=== PATIENT | female | born 1985 | race Caucasian/White ===

== ENCOUNTER 2023-08-07 12:07 | Emergency (ER) | payer OTHER, SELFPAY ==
--- NOTE | 2023-08-07 12:13 | ED.URI ---
HPI - URI/Sore Throat General Chief Complaint: Upper Respiratory Infection Stated Complaint: Cough/Congestion Source: patient, RN notes reviewed and old records reviewed Mode of arrival: ambulatory Limitations: no limitations History of Present Illness HPI Narrative: 37-year-old female presents with complaints of cough, congestion, sinus pressure this started before [place]. Patient taking ynmc-cin-zaplqao medications with no relief. Patient states has thick yellow/ green phlegm production. Patient denies weakness, dizziness, chest pain, shortness of breath. MD elicited complaint: cough, rhinorrhea, nasal congestion and sinus pain Onset (ago): day(s) () Related Data Allergies Allergy/AdvReac Type Severity Reaction Status Date / Time Penicillins Allergy Intermediate Unknown Verified 07/03/18 09:33 Review of Systems Constitutional: Constitutional: Reports no additional constitutional complaints, Denies body ache(s), Denies chills, Denies fatigue, Denies fever(s) and Reports headache(s) Eyes: Eyes: Reports no additional eye complaints and Denies blurry vision ENT: Reports system reviewed and no additional complaints, except as documented, Denies vertigo, Denies dizziness, Denies ear discharge, Denies otalgia, Denies facial pain, Denies headache(s), Reports nasal congestion, Reports nasal discharge, Reports sinus pain, Reports sinus pressure and Denies sore throat Cardiovascular: Cardiovascular: Reports no additional cardiovascular complaints, Denies chest pain, Denies chest pain at rest, Denies rapid heart rate and Denies dyspnea Respiratory: Respiratory: Reports no additional respiratory complaints, Reports chest congestion, Reports cough, Denies pain on inspiration, Denies pain with cough and Denies dyspnea Gastrointestinal: Gastrointestinal: Denies abdominal pain, Denies diarrhea, Denies nausea and Denies vomiting Integumentary/Breasts: Skin/Breast: Denies rash Neurologic: Reports system reviewed and no additional complaints, except as documented, Denies vertigo, Denies dizziness and Denies headache(s) Endocrine: Endocrine: Denies fatigue PMFSH Comments At the time of my signature, I reviewed and agree with the nursing past medical, surgical, social, and family history. There is no relevant family history pertinent to the patient complaint. Exam Const: General: cooperative, healthy appearing, no acute distress and well nourished Nutritional Appearance: well nourished Orientation/consciousness: patient oriented x3 Limitations: no limitations HENMT: Head: normal to inspection and normocephalic Ears: external ears normal, mastoids normal, Abnormal EAC present and TM abnormal wth effusion Face/Nose/Sinus: Nasal discharge present purulent Face and sinus: normal facial exam and sinus tenderness maxillary Mouth: Yes Normal oral and palatal mucosa present, Yes oropharynx normal and Yes moist mucous membranes Throat: tonsils normal, uvula midline and no uvular edema Eyes: General: appearance normal, both eyes and all related structures Sclera: sclerae normal Pupils: Equal, round and reactive pupils present Resp: Effort & Inspection: normal respiratory effort, able to speak in complete sentences, no audible wheezes, no cough, no respiratory distress and no retractions Auscultation: clear to auscultation bilaterally, no crackles, no rales, no rhonchi and no wheezes Cardio: Rate: regular rate Rhythm: regular rhythm Skin: General skin exam: normal color and no rashes or lesions noted Neuro: General: patient oriented x3 Cranial nerves: Yes Equal, round and reactive pupils present Psych: Appearance: grossly normal Mental Status: mental status grossly normal Speech and movement: Normal speech and movement present Affect: normal affect Course Course Emergency Course: Patient is aware of diagnosis, understands and agrees to treatment plan.? Anticipatory guidance given.? Patient agrees to follow-up as directed and is aw
[2023-08-07 12:16] VITALS: BP 112/80; PULSE 73; RESP 18; TEMP 36.6; O2SAT 98
== END 2023-08-07 12:36 | disposition home or self-care (01) ==
PROVIDERS: Emergency Provider Registered Nurse; PCP Internal Medicine
DX: J01.90 Acute sinusitis, unspecified (principal)
CPT/HCPCS: 99213; G0463

== ENCOUNTER 2023-10-02 16:29 | Outpatient (CLI) | payer OTHER, SELFPAY ==
--- NOTE | ~2023-10-02 | XR_ITS ---
EXAMINATION: XR sinus min 3V INDICATION: Sinusitis TECHNIQUE: Three views of the paranasal sinuses are obtained. COMPARISON: None available FINDINGS: There is normal pneumatization of the paranasal sinuses. No definite sinus opacification is identified. The facial bones are unremarkable. IMPRESSION: 1. No definite evidence of sinusitis. If there is high clinical suspicion for sinus disease, consider CT of the sinuses. Reviewed, dictated and finalized at location F. GE DOOR HANGER IMPRESSION: 1. No definite evidence of sinusitis. If there is high clinical suspicion for s inus disease, consider CT of the sinuses.
== END 2023-10-02 16:30 | disposition home or self-care (01) ==
LOC: CHSIMG 16:30
PROVIDERS: PCP Internal Medicine; Visit Provider Internal Medicine
DX: J32.9 Chronic sinusitis, unspecified (principal)
CPT/HCPCS: 70220

== ENCOUNTER 2023-11-27 15:14 | Outpatient (CLI) | payer OTHER, SELFPAY ==
--- NOTE | ~2023-11-27 | CT_ITS ---
EXAMINATION: CT sinus wo con DATE: 11/27/2023 15:29 INDICATION: Chronic sinusitis TECHNIQUE: Computed tomography (CT) of the paranasal sinuses was performed without intravenous contra st. The dose-length product was 267.62 mGy-cm. Automated exposure control and iterative reconstructio n technique were employed. COMPARISON: None FINDINGS: There is mucosal thickening of the maxillary sinuses with air-fluid levels. Mastoids are pn eumatized. Rightward nasal septal deviation. Left ostiomeatal unit is patent. Right ostiomeatal unit is partially occluded by soft tissue. There is mild ethmoid and left sphenoid sinus mucosal thickenin g. Thickening. Mild IMPRESSION: 1. Moderate sinusitis primarily involving the maxillary sinuses. Reviewed, dictated and finalized at location B.
== END 2023-11-27 15:15 ==
PROVIDERS: PCP Internal Medicine; Referring Provider Otolaryngology; Visit Provider Allergy & Immunology
DX: J32.9 Chronic sinusitis, unspecified (principal)
CPT/HCPCS: 70486

== ENCOUNTER 2024-03-27 13:05 | Emergency (ER) | payer OTHER, SELFPAY ==
[2024-03-27 13:05] VITALS: BP 113/75; PULSE 85; RESP 16; TEMP 36.9; O2SAT 99
--- NOTE | 2024-03-27 13:16 | ED.UPPEXIN ---
HPI - Extremity Injury (Upper) General Chief Complaint: Skin/Abscess/Foreign Body Stated Complaint: poison shannan Related Data Allergies Allergy/AdvReac Type Severity Reaction Status Date / Time Penicillins Allergy Intermediate Unknown Verified 07/03/18 09:33 Discharge Plan Discharge Follow-up/Referrals: Vitaliy Conner MD [Primary Care Provider] -
--- NOTE | 2024-03-27 13:39 | ED.SKABFB ---
HPI - Skin/Abscess/Foreign Bdy General Chief complaint: Skin/Abscess/Foreign Body Stated complaint: poison shannan Time Seen by Provider: 03/27/24 13:39 Source: patient and RN notes reviewed Mode of arrival: ambulatory Limitations: no limitations History of Present Illness HPI narrative: 38-year-old female presents with concern for itchy rash on her arms. Reports she was in the [place] 6 days ago and developed a rash after that. She has tried ckxc-foa-oraqeud products without relief. complaint: rash Related Data Allergies Allergy/AdvReac Type Severity Reaction Status Date / Time Penicillins Allergy Intermediate Unknown Verified 07/03/18 09:33 Review of Systems Review of Systems: CONSTITUTIONAL: Denies malaise, chills, sweats, or fever. EYES: Denies redness, or discharge. ENT: Denies rhinorrhea, congestion, swollen lips, swollen tongue CARDIOVASCULAR: Denies chest pain, palpitations, or edema. RESPIRATORY: Denies cough or dyspnea. GASTROINTESTINAL: Denies abdominal pain, nausea, vomiting SKIN: Reports itchy rash on bilateral arms MUSCULOSKELETAL: Denies joint pain or myalgia. NEUROLOGIC: Denies headache. All systems reviewed & are unremarkable except as noted in HPI and below PMFSH Comments At time of signature, agree with nursing past medical, surgical, social and family history. There is no relevant family history pertinent to the presenting complaint Exam Narrative: GENERAL: Well-appearing, well-nourished, and in no acute distress. HEAD: Normocephalic, atraumatic. EYES: PERRLA, conjunctivae clear, and EOMI. ENT: Mucous membranes moist. Oropharynx without edema, erythema or lesions. NECK: Supple. No lymphadenopathy CHEST: Clear to auscultation. No respiratory distress. HEART: Regular rate and rhythm. SKIN: Warm, dry. Patches of irregular erythematous papules noted bilateral arms NEURO: Alert and oriented x3. PSYCH: Normal mood and affect Course Course Emergency Course: Patient is aware of diagnosis, understands and agrees to treatment plan. Anticipatory guidance given. Patient agrees to follow-up as directed and is aware of reasons to seek care at the emergency department. Portions of this record may have been created with voice recognition software Level of Care: Express Care Visit Vital Signs Vital signs: Vital Signs Temperature 98.5 F 03/27/24 13:05 Pulse Rate 85 03/27/24 13:05 Respiratory Rate 16 03/27/24 13:05 Blood Pressure 113/75 03/27/24 13:05 Pulse Oximetry 99 03/27/24 13:05 Oxygen Delivery Room Air 03/27/24 13:05 Temperature 98.5 F 03/27/24 13:05 Pulse Rate 85 03/27/24 13:05 Respiratory Rate 16 03/27/24 13:05 Blood Pressure 113/75 03/27/24 13:05 Pulse Oximetry 99 03/27/24 13:05 Oxygen Delivery Room Air 03/27/24 13:05 Reviewed. MDM - Skin/Abscess/Foreign Bdy MDM Narrative Medical decision making narrative: Does not appear at this time to be erythema multiforme, bullous, SJS, TEN; no evidence at this time to suggest RMSF, endocarditis or Lyme disease; patient looks well, nontoxic and is tolerating oral intake; no neurologic signs or symptoms; no headache, photophobia or neck pain; afebrile; appropriate for initial outpatient treatment; discussed the importance of follow-up, patient agrees; question, viral exanthema, contact dermatitis, allergic dermatitis, eczema, urticaria, [ xx ]. No soft palate or uvula edema, no tongue, lip edema or other mucosal involvement, no respiratory compromise, no stridor, no wheezing, no wheezing, no history of syncope, no hypotension, no nausea, vomiting, or diarrhea. Instructed patient to go to nearest ER immediately for any worsening symptoms including but not limited to: fever, spreading rash, pain, sore throat, headache, dizziness, chest pain, trouble breathing, or any symptoms concerning to the patient. Critical Care Time Critical Care Time Critical Care Time: No Discharge Plan Discharge Clinical Impre
== END 2024-03-27 13:52 | disposition home or self-care (01) ==
PROVIDERS: Emergency Provider Nurse Practitioner; PCP Internal Medicine
DX: L25.9 Unspecified contact dermatitis, unspecified cause (principal)
CPT/HCPCS: 99213; G0463

== ENCOUNTER 2024-09-18 14:00 | Emergency (ER) | payer OTHER, SELFPAY ==
--- OUTSIDE RECORDS SUMMARY | 2024-09-18 14:04 | XMS_ITS | Data Portability ---
Author Organization [place] - [employer], Main Office Address [address] [place] [address] Care Team Providers Care Basket Operator Name Role Phone OCTAVIA ESPINOSA Primary Care Provider Assessment No assessment recorded. Plan of Treatment Reminders Order Date Submit Date Provider Last Modified By Organization Details Last Modified Time Details Appointments None recorded. Lab None recorded. Referral None recorded. Procedures None recorded. Surgeries septoplasty (SURG) 2023 024 [email or web address] Not available 11:24:56 endoscopy, nasal/sinus , w/ maxillary antrostomy & tissue removal (SURG) 2023 024 [email or web address] [facility], [address] [facility], [place], [address], 11:24:57 submucous resection inferior turbinate (SURG) 2023 024 [email or web address] Not available 11:24:56 Imaging None recorded. Medication Orders None recorded. Patient TargetsNo targets recorded. Patient Instructions Encounter Date Encounter Id Patient Instructions Last Modified By Organization Details Last Modified Time 01/23/2024 [id number] she will continu e irrigations and return as needed [email or web address] Not available 01/23/2024 15:07:53 Reason for Referral None Reported. Results Created Date Observation Date Name Description Value Unit Range Abnormal Flag Note LastModifiedBy Organization Detail LastModifiedTime 12/05/1911/27/2023 CT, sinus es, w/o contr ast No observ ation record ed. [email or web address] [facility] [address], [place], [address], 12/05/2023 11:33:52 Result Notes None recorded. Problems Name Problem SNOMED Code Status Onset Date Resolution Date Notes Provider Name and Address Organization Details Recorded Time Deviated nasal septum 316323890 Active 2023 Hermes Villanueva MD [address], [place], [address], [employer] [facility] [employer] 4 16:46:06 Hypertrophy of nasal turbinates 13910363 Active 2023 Hermes Villanueva MD [address], [address], [place], [address], [employer] 4 16:46:16 Chronic maxillary sinusitis 50788972 Active 2023 Hermes Villanueva MD [address], [address], [place], [address], [employer] [facility] [employer] 4 16:46:23 Postoperative pain 901845939 Active 2023 Hermes Villanueva MD [address], [address], [place], [address], [employer] 4 17:32:23 Chronic sinusitis 19072266 Active 2023 Hermes Villanueva MD [address], [address], [place], [address], [employer] [facility] [employer] 4 15:07:44 Nasal congestion 97726682 Active 2023 RON Burleson null, [employer] [facility] [employer] 4 12:24:11 Problem Notes None recorded. Procedures Surgical History Date Name Laterality Status Provider Name and Address Organization Details Recorded Time SEPTOPLASTY (SURG) completed Guerita Salinas [place] [employer] [facility] [employer] 01/22/2024 11:34:48 Imaging Results Imaging Date Name Status LastModified by Organiz ation Details LastModified Time 11/27/2023 CT, sinuses, w/o contrast completed [email or web address] [facility] [address], [place], [address], 12/05/2023 11:33:52 Procedure Notes None recorded. Medical Equipment None Reported. Allergies Allergen ID Allergen Name Allergen Category Reaction Reaction Severity Criticality Documentation Date Start Date Code Code System Note Provider Name and Address Organization Details Recorded Time 09523 amoxicill in medicatio n wheezing Not available Not available 10/15/2023 723 RxNorm Deanna Joslyn, JOSEA null, [place] [facility] [employer] 4 09:46:30 Medications Name Sig Start Date Stop Date Status Note LastModified by Organization Details LastModified Time prednisone 10 mg tablet active Not Available Not Available Not Available doxycycline hyclate 100 mg capsule 12/03 completed Not Available Not Available Not Available azithromyci n 250 mg tablet 12/03 completed Not Available Not Available Not Available metronidazo le 0.75 % (37.5 mg/5 gram) vaginal gel active Not Available Not Available Not Available alprazolam 0.25 mg tablet active Not Available Not Available Not Available doxycycline monohydrate 100 mg capsule 12/03 completed Not Available Not Available Not Available hydrocodone 7.5 mg-acetamin ophen 325 mg tablet Take 1 tablet every 4-6 hours by oral route. 01/22 completed Not Available Not Available Not Available fluoxetine 10 mg capsule active Not Available Not Available Not Available montelukast 10 mg tablet 12/03 completed Not Available Not Available Not Available epinephrine 0.3 mg/0.3 mL injection, auto-inject or active Not Available Not Available Not Available methylpredn isolone 4 mg tablets in a dose pack 12/03 completed Not Available Not Available Not Available fluoxetine 20 mg capsule active Not Available Not Available Not Available fluticasone propionate 50 mcg/actuati on nasal spray,suspe nsion [place] 1 spray every day by intranasa l route. active Not Available Not Available No t Available doxycycline hyclate 100 mg tablet Take 1 tablet twice a day by oral route for 10 days. 11/26 completed Not Available Not Available Not Available buspirone 15 mg tablet 12/03 completed Not Available Not Available Not Available Mercedes-D 12/03 completed Not Available Not Available Not Available Vitals Date Recorded Body height Body mass index (BMI) Body weight Body temperature Provider Name and Address Organization Details Last Updated DateTime 12/04/2023 157.48 cm 40.1 kg/m2 10376.73 g 97.7 [degF] Alexia Arroyo RN [facility] [employer] 12/04/2023 16:11:51 Date Recorded Body height Body mass index (BMI) Body weight Body temperature Provider Name and Address Organization Details Last Updated DateTime 01/23/2024 157.48 cm 41.2 kg/m2 443888.28 g 98 [degF] Alexia Arroyo RN [facility] [employer] 01/23/2024 14:59:11 Social History Question Answer Notes LastModified by Organizat ion Details LastModified Time Tobacco Smoking Status Former Smoker RON Burleson, [place] [employer] [employer] 10/15/2023 09:48:41 What Is Your Level Of Alcohol Consumption? Occasional ftrotter Information not available 10/15/2023 Sex: Unknown Functional Status None recorded. Mental Status None recorded. Family History Nothing Reported Notes:No ENT Medical History Condition Response SEASONAL ALLERGIES Y Gynecological HistoryNo gynecological history recorded. Obstetrics History GPAL:G 0 P 0 0 0 0 Past Encounters Encounter ID Performer Location Encounter Start Date Encounter Closed Date Diagnosis/Indication Diagnosis SNOMED-CT Code Diagnosis ICD10 Code Diagnosis Note [id number] MD [facility] [place] [address] [place] [address] 12/04/2023 15:41:51 12/05/2023 10:57:42 Deviated nasal septum 507753473 J34.2 Hypertroph y of nasal turbinates 44362282 J34.3 Chronic ma xillary sinusitis 10497689 J32.0 [id number] MD [facility] [place] [address] [place] [address] 01/23/2024 14:55:03 01/23/2024 15:42:31 Chronic sinusitis 18568133 J32.9 Health Concerns Section Related Observation LastModified by Organization Detai ls LastModified Time None Recorded Concern Status LastModified by Organization Details LastModified Time None Recorded Advance Directives Directive None Recorded Payers Encounter Date Sequence Insurance Name Policy Number Policy Riley Covered Member ID Riley Member ID Guarantor Name 12/04/2023 1 [facility] [id number] Layton Hightower [id number] Layton Hightower 01/23/2024 1 [facility] [id number] Layton Hightower [id number] Layton Hightower Notes Date Note Type Note Provider Name and Address Organization Details Recorded Time 12/04/2023 text/html this patient has a multiyear history of chronic sinusitis. This has been treated with antibiotics and steroids on multiple occasions. This was thought to be allergy and was treated with allergy medications without success. Allergy testing was done and was negative. Ultimately a CT was done demonstrating severe right septal deviation bilateral maxillary sinusitis and turbinate hypertrophy. Hermes Villanueva MD [address], [place] [address], [place], [address], [employer] [facility] [employer] [facility] 12/04/2023 16:46:45 01/23/2024 text/html this patient reports a mild headache otherwise is doing well Hermes Villanueva MD [address] [place] [address], [place], [address], [employer] [facility] 01/23/2024 15:08:16 OBGyn Episode No OBEpisode recorded.
--- OUTSIDE RECORDS SUMMARY | 2024-09-18 14:04 | XMS_ITS | Referral Summary ---
Author Organization [facility] [address] [facility] lto Address [address] [place] [address] Care Team Providers Care Communications Tower Technician Name Role Phone Marlon Vo MD Primary Care Provider Allergies Active Allergy Reactions Criticality Noted Date Comments Amoxicillin Wheezing Medium 08/10/2021 Medications levonorgestreL (EDUARDA) 14 mcg/24 hrs (3 yrs) 13.5 mg IUDIndications:Pr egnancy Contraception 1 each by intrauterine route once Active Active Problems No known active problems Social History Tobacco Use Types Packs/Day Years Used Date Smoking Tobacco: Former Smokeless Tobacco: Never Personal Safety Answer Date Recorded Getting School Help Needed Not on file 09/29 Comments Unknown Sex and Gender Information Value Date Recorded Sex Assigned at Not on file Legal Sex Female 11: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 GUARD Gender Identity Not on file Sexual Orientation Not on file Last Filed Vital Signs Vital Sign Reading Time Taken Comments Blood Pressure 110/70 08/10/2021 8:51 AM SECURITY GUARD Pulse 87 08/10/2021 8:51 AM SECURITY GUARD Temperature 36.7 C (98.1 F) 08/10/2021 8:51 AM SECURITY GUARD Respiratory Rate 16 08/10/2021 8:51 AM SECURITY GUARD Oxygen Saturation 97% 08/10/2021 8:51 AM SECURITY GUARD Inhaled Oxygen Concentration - - Weight 96.2 kg (212 lb) 08/10/2021 8:51 AM SECURITY GUARD Height 154.9 cm (5' 1 ) 08/10/2021 8:51 AM SECURITY GUARD Body Mass Index 40.06 08/10/2021 8:51 AM SECURITY GUARD Plan of Treatment Not on file Insurance [facility]PPO Address: [place] [address] [facility]/PPO Address: [place] [address] Care Teams Communications Tower Technician Relationship Specialty Start Date End Date Marlon Vo MD PCP - General Family Medicine 08/10/21
--- OUTSIDE RECORDS SUMMARY | 2024-09-18 14:04 | XMS_ITS | Clinical Summary ---
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 Gender Identity Not on file Sexual Orientation Not on file Plan of Treatment Health Maintenance Due Date Last Done Comments Annual Physical 1988 Hepatitis C 10/05/2003 DTaP, Tdap and Td Vaccines ( 1 - Tdap) 2004 Hepatitis B Vaccines (1 of 3 - 19+ 3-dose series) 2004 Cervical Cancer Screening Pa p Smear (Age 30 to 64) Every 3 Years 06/13/2020 06/13/2017 Cervical Cancer Screening Pa p with HPV Testing (Age 30 to 64) Every 5 Years 06/13/2022 06/13/2017 Cervical Cancer Screening with HPV 06/13/2022 COVID-19 Vaccine (2023-2 5 season) 2024 Influenza Adult (#1) 2024 HPV Vaccines Aged Out No longer eligi ble based on patient's age to complete this topic Meningococcal B Vaccine Aged Out No l onger eligible based on patient's age to complete this topic Meningococcal Vaccine Aged Out No bernardo skinny eligible based on patient's age to complete this topic Pneumococcal Vaccine: Pediat rics (0 to 5 Years) and At-Risk Patients (6 to 64 Years) Aged Out No longer eligi ble based on patient's age to complete this topic RSV Immunizations Under 20 Months Aged Out No longer eligible based on patient's age to complete this [place] [address] [place] [address] [facility] Care Teams Rn Ortho Relationship Specialty Start Date End Date Marlon Vo MD [address] [place] [phone] PCP - General FAMILY PRACTICE 10/17/20
--- OUTSIDE RECORDS SUMMARY | 2024-09-18 14:04 | XMS_ITS | Encounter Summary ---
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
--- OUTSIDE RECORDS SUMMARY | 2024-09-18 14:05 | XMS_ITS | Clinical Summary ---
Author Organization [facility] [address] Address [address] [place] [address] Care Team Providers Care Housekeeper Child Care Name Role Phone Marlon Vo MD Primary Care Provider [phone] Allergies Active Allergy Reactions Criticality Noted Date Comments Penicillins Shortness of Breath 05/25/2019 Sesame Oil Itching,Vomiting 05/25/2019 Medications Levonorgestrel (MIRENA, 52 MG, IU) by Intrauterine route. Active Active Problems No known active problems Social History Tobacco Use Types Packs/Day Years Used Date Smoking Tobacco: Every Day Cigarettes Smokeless Tobacco: Never Comments No Sex and Gender Information Value Date Recorded Sex Assigned at Not on file Legal Sex Female 6:25 PM CDT Gender Identity Not on file Sexual Orientation Not on file Last Filed Vital Signs Vital Sign Reading Time Taken Comments Blood Pressure 118/74 05/25/2019 9:06 PM CDT Pulse 80 05/25/2019 9:06 PM CDT Temperature 36.7 C (98 F) 05/25/2019 7:35 PM CDT Respiratory Rate 18 05/25/2019 9:06 PM CDT Oxygen Saturation 98% 05/25/2019 9:06 PM CDT Inhaled Oxygen Concentration - - Weight 92.1 kg (203 lb) 05/25/2019 7:35 PM CDT Height 157.5 cm (5' 2 ) 05/25/2019 7:35 PM CDT Body Mass Index 37.13 05/25/2019 7:35 PM CDT Plan of Treatment Health Maintenance Due Date Last Done Comments Hepatitis C Virus (HCV) Screening 1985 TdaP Immunization 1985 Hepatitis B Immunization (1 of 3 - 19+ 3-dose series) 2004 Pap Smear 2006 Cervical Cancer Screening (CCS) 10/05/2015 HPV/Cotest 10/05/2015 Influenza Immunization (#1) 2024 SARS-COV-2 Immunization ( - 2023-25 season) 2024 Respiratory Syncytial Virus (RSV) Immunization (Adult) (1 - 1-dose 75+ series) 2060 Meningococcal Immunization (ACWY) Aged Out No longer eligible based on patient's age to complete this topic Pneumococcal Immunization Combined Aged Out No longer eligible based on patient's age to complete this topic Rotavirus Immunization Aged Out No lo nger eligible based on patient's age [place] [id number] [facility] Care Teams Housekeeper Child Care Relationship Specialty Start Date End Date Marlon Vo MD [address] [place] [id number] PCP - General Family Medicine 05/25/19
--- OUTSIDE RECORDS SUMMARY | 2024-09-18 14:05 | XMS_ITS | Clinical Summary ---
Author Organization [facility] Address [address] [place] [address] Care Team Providers Care Carbon Dioxide Operator Name Role Phone Marlon Vo MD Primary Care Provider Allergies Active Allergy Reactions Criticality Noted Date Comments Amoxicillin Wheezing Medium 08/10/2021 Medications levonorgestreL (EDUARDA) 14 mcg/24 hrs (3 yrs) 13.5 mg IUDIndications:Pr egnancy Contraception 1 each by intrauterine route once Active Active Problems No known active problems Surgical History Surgery Date Site/Laterality Comments ROTATOR CUFF REPAIR 08/05/1996 - 08/04/1997 Right Medical History Medical History Date Comments No pertinent past medical history Family History Medical History Relation Name Comments Breast cancer Mother Relation Name Status Comments Mother Social History Tobacco Use Types Packs/Day Years Used Date Smoking Tobacco: Former Smokeless Tobacco: Never Personal Safety Answer Date Recorded Getting School Help Needed Not on file 09/29 Comments Unknown Sex and Gender Information Value Date Recorded Sex Assigned at Not on file Legal Sex Female 11:06 PM COMPUTER HARDWARE ENGINEER Gender Identity Not on file Sexual Orientation Not on file Obstetrics History Last Filed Vital Signs Vital Sign Reading Time Taken Comments Blood Pressure 110/70 08/10/2021 8:51 AM COMPUTER HARDWARE ENGINEER Pulse 87 08/10/2021 8:51 AM COMPUTER HARDWARE ENGINEER Temperature 36.7 C (98.1 F) 08/10/2021 8:51 AM COMPUTER HARDWARE ENGINEER Respiratory Rate 16 08/10/2021 8:51 AM COMPUTER HARDWARE ENGINEER Oxygen Saturation 97% 08/10/2021 8:51 AM COMPUTER HARDWARE ENGINEER Inhaled Oxygen Concentration - - Weight 96.2 kg (212 lb) 08/10/2021 8:51 AM COMPUTER HARDWARE ENGINEER Height 154.9 cm (5' 1 ) 08/10/2021 8:51 AM COMPUTER HARDWARE ENGINEER Body Mass Index 40.06 08/10/2021 8:51 AM COMPUTER HARDWARE ENGINEER Plan of Treatment Not on file Insurance [facility] [address] [facility] Care Teams Carbon Dioxide Operator Relationship Specialty Start Date End Date Marlon Vo MD PCP - General Family Medicine 08/10/21
[2024-09-18 14:16] VITALS: BP 121/58; PULSE 98; RESP 16; TEMP 36.6; O2SAT 99
--- NOTE | 2024-09-18 14:28 | ED.URI ---
HPI - URI/Sore Throat General Chief Complaint: Upper Respiratory Infection Stated Complaint: poss sinus and yeast infection Time Seen by Provider: 09/18/24 14:28 Source: patient Mode of arrival: ambulatory Limitations: no limitations History of Present Illness HPI Narrative: 38 y/o female presented for c/o sinus congestion and pressure for several weeks. states she felt suddenly fatigued today, and reports an occasional cough. Pt also reports concern for yeast infection due to vaginal itching x3 days. Says she completed Keflex for one week then took z-pack which she completed about one week ago. Has been using vaginal cream without significant improvement. Denies urinary complaints, vaginal discharge, abdominal pain, flank pain, constipation, diarrhea, fevers or chills. Denies concern for std or . Related Data Home Medications ?Medication ?Instructions ?Recorded ?Confirmed ?Last Taken ?Type alprazolam 0.25 mg tablet mg 09/18/24 Unknown History fluoxetine 10 mg capsule mg 09/18/24 Unknown History fluoxetine 20 mg capsule mg 09/18/24 Unknown History Allergies Allergy/AdvReac Type Severity Reaction Status Date / Time Penicillins Allergy Intermediate Unknown Verified 09/18/24 14:02 Review of Systems Review of Systems: per HPI All systems reviewed & are unremarkable except as noted in HPI and below [facility] Comments At time of signature, I have reviewed and agree with nursing past medical, surgical, social and family history unless otherwise noted. Please see nursing chart for further information. There is no relevant family history pertinent to the presenting complaint Exam Narrative: GENERAL: Well-appearing and in no acute distress. EYES: EOMI. No redness or drainage. Conjunctivae normal. ENT: Mucous membranes pink and moist. No rhinorrhea. TMs normal bilaterally. Throat normal. Uvula midline. NECK: Normal AROM. CHEST: No respiratory distress. Clear to auscultation. HEART: Regular rate and rhythm. No murmur appreciated. Normal peripheral pulses. SKIN: Warm, dry, no rash. Capillary refill normal. Normal skin turgor. NEURO: No focal deficits. Alert and oriented x3. Gait steady. PSYCH: Normal affect. No signs of depression or anxiety. Course Course Emergency Course: Patient is aware of diagnosis, understands and agrees to treatment plan. Anticipatory guidance given. Patient agrees to follow-up as directed and is aware of reasons to seek care at the emergency department. Portions of this record may have been created with voice recognition software Level of Care: Express Care Visit Vital Signs Vital signs: Vital Signs Temperature 98 F 09/18/24 14:16 Pulse Rate 98 09/18/24 14:16 Respiratory Rate 16 09/18/24 14:16 Blood Pressure 121/58 L 09/18/24 14:16 Pulse Oximetry 99 09/18/24 14:16 Oxygen Delivery Room Air 09/18/24 14:16 Temperature 98 F 09/18/24 14:16 Pulse Rate 98 09/18/24 14:16 Respiratory Rate 16 09/18/24 14:16 Blood Pressure 121/58 L 09/18/24 14:16 Pulse Oximetry 99 09/18/24 14:16 Oxygen Delivery Room Air 09/18/24 14:16 MDM - URI/Sore Throat MDM Narrative Medical decision making narrative: Discussed physical exam findings. Advised supportive measures and signs/symptoms to go to the ER. Pt is appropriate for outpt treatment and f/u. Differential Diagnosis Differential diagnosis: Likely upper respiratory infection, otitis media, sinusitis, viral infection and other Discharge Plan Discharge Clinical Impression: Vaginitis, Upper respiratory infection Patient Disposition: Home, Self-Care Condition: Stable Instructions: Antibiotic Form, Rhinosinusitis (ED) Additional Instructions: Recommendations; Flonase spray and Zyrtec (or Claritin/Mercedes) over the counter Cough syrup may cause drowsiness; avoid driving or take it at night time. Tylenol 1000mg every 8 hours as needed for pain Symptomatic treatment includes: rest, fluids, and increase humidity of the air at home. Keep skin clean, dry and well aerated Wear cotton underpants. Double rinse underpants after washing. Avoid fabric softeners for underpants and swimsuits. Avoid tights, leotards, leggings. Wearing loose fitting pants/skirts allow air to circulate. Avoid wearing wet swimsuits for long periods of time. Avoid bubble baths or perfumed soap Rinse genital area well and pat dry gently Cool compresses may help relieve the redness/irritation. Aquaphor, vaseline or A&D ointment may help protect the skin. Follow up with your primary care provider in 1 week. Go to the ER for worsening symptoms or concerns. Patient Language: Wolof Prescriptions: New fluconazole 150 mg tablet 150 mg PO DAILY Qty: 2 0RF doxycycline hyclate 100 mg tablet 100 mg PO BID 5 Days Qty: 10 0RF No Action alprazolam 0.25 mg tablet fluoxetine 10 mg capsule fluoxetine 20 mg capsule Follow-up/Referrals: Vitaliy Conner MD [Primary Care Provider] - Time of Disposition: 14:42
== END 2024-09-18 14:46 | disposition home or self-care (01) ==
PROVIDERS: Emergency Provider Nurse Practitioner Family; PCP Internal Medicine
DX: N76.0 Acute vaginitis (principal); J06.9 Acute upper respiratory infection, unspecified; Z79.899 Other long term (current) drug therapy
CPT/HCPCS: 99213; G0463

== ENCOUNTER 2025-05-20 08:29 | Outpatient (CLI) | payer OTHER, SELFPAY ==
--- NOTE | ~2025-05-20 | CT_ITS ---
EXAMINATION: CT sinus wo con COMPARISON: None HISTORY: CHRONIC SINUSITIS, UNSPECIFIED LOCATION TECHNIQUE: Axial images were obtained without IV contrast. Sagittal, coronal reconstruction images were obtained from the axial views. CT scan performed using dose optimization techniques including the following automated exposure control; adjustment of mA and/or kV; use of iterative reconstruction technique. Automatic exposure control was used to reduce radiation dose. Permanent radiation dose record is archived to PACS. FINDINGS: Visualized brain parenchyma optic globes and soft tissues appear unremarkable Frontal sinuses are unremarkable. Ethmoidal sinuses demonstrate minimal mucosal thickening. The maxillary sinuses are unremarkable. The ostiomeatal complexes are patent. Nasal septum is posteriorly deviated to the right with thickening of the turbinates and mild narrowing of the nasal cavities bilaterally. Sphenoid sinuses are unremarkable. There is no osseous destruction or wall thickening identified. IMPRESSION: 1. Minimal sinusitis Reviewed, dictated and finalized at location P. IMPRESSION: 1. Minimal sinusitis
--- OUTSIDE RECORDS SUMMARY | 2025-05-20 08:43 | XMS_ITS | Patient Health Record ---
Author Organization [facility] Address [address] [place] [address] Care Team Providers Care Air Support Operations Operator Name Role Phone Rodney Spann Unavailable [phone] Allergies Allergen (clinical drug ingredient) Drug/Non Drug Allergy documented on EMR Reaction Allergy Type Onset Date Status Penicillin Unknown Drug Allergy Active Reason For Referral No Information Medications Medication SIG (Take, Route, Frequency, Duration) Notes Start Date End Date Status Mirena *Reorder from Mi dispan for eRx and Interaction Alerts* Active Problems Problem Type SNOMED Code ICD Code Onset Dates Problem Status W/U Status Risk Notes Problem Normal pressure hydrocephalus (36379423) (Idiopathic) normal pressure hydrocephalus (G91.2) Active confirmed Problem Closed traumatic dislocation of carpometacarpal joint of wrist (26074125) Subluxation of carpometacarpal joint of right thumb, initial encounter (S63.041A) Active confirmed Problem Subluxation of carpometacarpal joint of right thumb, subsequent encounter (S63.041D) Active confirmed Problem Sprain of carpal joint of right wrist, sequela (S63.511S) Active confirmed Problem Carpal joint sprain (933698719) Sprain of carpal joint of left wrist, initial encounter (S63.512A) Active confirmed Plan Of Treatment Pending Test Test Name Order Date INTERMEDIATE JOINT INJECTION W/ US 04/09 INTERMEDIATE JOINT INJECTION W/ US 06/02 STRAPPING OF HAND OR FINGER 01/15/2019 Medical (General) History Medical History History ICD Code Broken bones (bilateral arms and legs) Surgical History Surgery Date(Month/Year) Rotator cuff - right arm 1998
--- OUTSIDE RECORDS SUMMARY | 2025-05-20 08:43 | XMS_ITS | Clinical Summary ---
Author Organization [facility] Address [address] [place] [address] Care Team Providers Care Global Regulatory Affairs Manager Name Role Phone Marlon Vo MD Primary [...] on file Legal Sex Female 11:[address] THRU ORDER TAKER Gender Identity Not on file Sexual Orientation Not on file Obstetrics History Last Filed Vital Signs Vital Sign Reading Time Taken Comments Blood Pressure 110/70 08/10/2021 8:[address] TH[address] ORDER TAKER Pulse 87 08/10/2021 8:[address] TH[address] ORDER TAKER Temperature 36.7 C (98.1 F) 08/10/2021 8:[address] TH[address] ORDER TAKER Respiratory Rate 16 08/10/2021 8:[address] TH[address] ORDER TAKER Oxygen Saturation 97% 08/10/2021 8:[address] TH[address] ORDER TAKER Inhaled Oxygen Concentration - - Weight 96.2 kg (212 lb) 08/10/2021 8:[address] TH[address] ORDER TAKER Height 154.9 cm (5' 1) 08/10/2021 8:[address] TH[address] ORDER TAKER Body Mass Index 40.06 08/10/2021 8:[address] TH[address] ORDER TAKER Plan of Treatment Not on file Insurance [facility] [place] [place] [address] [facility] CHOICE PLUS Care Teams Global Regulatory Affairs Manager Relationship Specialty Start Date End Date Marlon Vo MD PCP - General Family Medicine 08/10/21
--- OUTSIDE RECORDS SUMMARY | 2025-05-20 08:44 | XMS_ITS | Data Portability ---
Author Organization [place] [facility], Main Office Address [address] [place] [address] Care Team Providers Care Box Finisher Name Role Phone OCTAVIA ESPINOSA Primary Care [...] & tissue removal (SURG) 2023 024 [email or web address] [facility], [address] [place], [address], 4 11:24:57 submucous resection inferior turbinate (SURG) 2023 024 [email or web address] Not available 4 11:24:56 Imaging None recorded. Medication Orders levofloxaci n 500 mg tablet 2024 025 [id number], [facility] [place], [place], [id number], 5 16:36:40 cefdinir 300 mg capsule 2024 025 [id number], [facility] [place], [place], [id number], 5 16:32:06 Patient TargetsNo targets recorded. Patient Instructions Encounter Date Encounter Id Patient Instructions Last Modified By Organization Details Last Modified Time 01/23/2024 [id number] she will continu e irrigations and return as needed [email or web address] Not available 01/23/2024 15:07:53 Reason for Referral None Reported. Results Created Date Observation Date Name Description Value Unit Range Abnormal Flag Note LastModifiedBy Organization Detail LastModifiedTime 12/05/19 24 11/27/2023 CT, sinus es, w/o contr ast No observ ation record ed. [email or web address] [facility] [address], [place], [address], 12/05/2023 11:33:52 Result Notes None recorded. Problems Name Problem SNOMED Code Status Onset Date Resolution Date Notes Provider Name and Address Organization Details Recorded Time Deviated nasal septum 205461985 Active 2023 Hermes Villanueva MD [address], [address], [place], [address], [employer] 4 16:46:06 Hypertrophy of nasal turbinates 69805553 Active 2023 Hermes Villanueva MD [address], [address], [place], [address], [employer] 4 16:46:16 Chronic maxillary sinusitis 80749207 Active 2023 Hermes Villanueva MD [address], [address], [place], [address], [employer] 5 16:34:51 Postoperative pain 833113870 Active 2023 Hermes Villanueva MD [address], [address], [place], [address], [employer] 4 17:32:23 Chronic sinusitis 10397940 Active 2023 MD Jim Cantu, [address], [place], [address], [employer] 5 16:31:37 Nasal congestion 64998118 Active 2023 RON Burleson null, [employer] 4 12:24:11 Problem Notes None recorded. Procedures Surgical History Date Name Laterality Status Provider Name and Address Organization Details Recorded Time SEPTOPLASTY (SURG) completed Guerita Reddncer [facility] [employer] [facility] 01/22/2024 11:34:48 Imaging Results None recorded. Procedure Notes None recorded. Medical Equipment None Reported. Allergies Allergen ID Allergen Name Allergen Category Reaction Reaction Severity Criticality Documentation Date Start Date Code Code System Note Provider Name and Address Organization Details Recorded Time 33155 amoxicill in medicatio n wheezing Not available Not available 10/15/2023 723 RxNorm Deanna Jorgensen, RON neil, [facility] [employer] [facility] 09:46:30 Medications Name Sig Start Date Stop Date Status Note LastModified by Organization Details LastModified Time prednisone 10 mg tablet 05/12 completed Not Available Not Available Not Available doxycycline hyclate 100 mg capsule 12/03 completed Not Available Not Available Not Available azithromyci n 250 mg tablet 12/03 completed Not Available Not Available Not Available metronidazo le 0.75 % (37.5 mg/5 gram) vaginal gel 05/13 completed Not Available Not Available Not Available alprazolam [...] active Not Available Not Available Not Available levofloxaci n 500 mg tablet Take 1 tablet every 24 hours by oral route. 2024 active Not Available Not Available Not Avai lable methylpredn isolone 4 mg tablets in a dose pack 12/03 completed Not Available Not Available Not Available cefdinir 300 mg capsule Take 1 capsule every 12 hours by oral route. 2024 active Not Available Not Available Not Avai lable fluoxetine 20 mg capsule active Not Available Not Available Not Available fluticasone propionate 50 mcg/actuati on nasal spray,suspe nsion [place] 1 spray every day by intranasa l route. active Not Available Not Available No t Available doxycycline hyclate 100 mg tablet Take 1 tablet twice a day by oral route for 10 days. 11/26 completed Not Available Not Available Not Available buspirone 15 mg tablet 12/03 completed Not Available Not Available Not Available montelukast active Not Available Not A vailable Not Available Mercedes-D 12/03 completed Not Available Not Available Not Available Vitals Date Recorded Body height Body mass index (BMI) Body weight Body temperature Provider Name and Address Organization Details Last Updated DateTime 12/04/2023 157.48 cm 40.1 kg/m2 50393.73 g 97.7 [degF] Alexia Arroyo RN [facility] [employer] 12/04/2023 16:11:51 Date Recorded Body height Body mass index (BMI) Body weight Body temperature Provider Name and Address Organization Details Last Updated DateTime 01/23/2024 157.48 cm 41.2 kg/m2 970593.28 g 98 [degF] Alexia Arroyo RN [facility] [employer] [facility] 01/23/2024 14:59:11 Date Recorded Body weight Body mass index (BMI) Body height Body temperature Provider Name and Address Organization Details Last Updated DateTime 05/13/2025 96006.36 g 39.3 kg/m2 157.48 cm 97.7 [degF] Alexia Arroyo RN [facility] [employer] [facility] 05/13/2025 16:11:37 Social History None recorded. Functional Status Question Answer Note LastModified by Organizat ion Details LastModified Time What is your level of alcohol consumption? Occasional ftrotter Information not available 10/15/2023 Mental Status None recorded. Family History Nothing Reported Notes:No ENT Medical History Condition Response SEASONAL ALLERGIES Y Gynecological HistoryNo gynecological history recorded. Obstetrics History GPAL:G 0 P 0 0 0 0 Past Encounters Encounter ID Performer Location Encounter Start Date Encounter Closed Date Diagnosis/Indication Diagnosis SNOMED-CT Code Diagnosis ICD10 Code Diagnosis IMO Codes Diagnosis Note [id number] Hermes Villanueva MD [facility] [place] [address] [place] [address] 12/04/2023 15:41:51 12/05/2023 10:57:42 Deviated nasal septum 673177066 J34.2 Hypertroph y of nasal turbinates 34965406 J34.3 Chronic ma xillary sinusitis 89196894 J32.0 [id number] Hermes Villanueva MD [facility] [place] [address] [place] [address] 01/23/2024 14:55:03 01/23/2024 15:42:31 Chronic sinusitis 51745081 J32.[id number] [facility] [place] [address] [place] [address] 05/13/2025 16:02:18 05/17/2025 09:28:59 Chronic sinusitis 89425625 J32.9 549122692 Chronic ma xillary sinusitis 80296646 J32.0 2493 Health Concerns Section Related Observation LastModified by Organization Detai ls LastModified Time None Recorded Concern Status LastModified by Organization Details LastModified Time None Recorded Advance Directives Directive None Recorded Payers Insurance Date Sequence Insurance Name Policy Number Policy Riley Covered Member ID Riley Member ID Guarantor Name 05/13/2025 1 [facility] [id number] Layton Hightower [id number] Layton Hightower 05/13/2025 1 [facility] Layton Hightower [id number] Layton Hightower Notes Date Note Type Note [...] sinusitis and turbinate hypertrophy. Hermes Villanueva MD [address] [facility], [place], [address], [facility] 12/04/2023 16:46:45 01/23/2024 text/html this patient reports a mild headache otherwise is doing well Hermes Villanueva MD [address], [place], [address], [employer] [facility] 01/23/2024 15:08:16 05/13/2025 text/html this patient has a history of septoplasty and antrostomy with balloon over 1 year ago. She reports that things went great at that time but she has been sick over the last 2-3 weeks. She was given an antibiotic and steroids in addition to Singulair. There is no relief initially but she is now doing better. She still feels a fluid and gurgling sensation in the right ear. Hermes Villanueva MD [address], [facility] [address], [place], [address], [facility] 05/13/2025 16:36:55 OBGyn Episode No OBEpisode recorded.
--- OUTSIDE RECORDS SUMMARY | 2025-05-20 08:44 | XMS_ITS | Clinical Summary ---
Author Organization [facility] [address] Address [address] [place] [address] Care Team Providers Care Preschool Teacher Aide Name Role Phone Marlon Vo MD Primary Care Provider [phone] Allergies Active Allergy Reactions Criticality Noted Date [...] 7:35 PM CDT Height 157.5 cm (5' 2) 05/25/2019 7:35 PM CDT Body Mass Index 37.13 05/25/2019 7:35 PM CDT Plan of Treatment Health Maintenance Due Date Last Done Comments Hepatitis C Virus (HCV) Screening 1985 TdaP Immunization 1985 Hepatitis B Immunization (1 of 3 - 19+ 3-dose series) 2004 Pap Smear 2006 Human Papillomavirus (HPV) Immunization (1 - 3-dose SCDM series) 2012 Cervical Cancer Screening (CCS) 10/05/2015 HPV/Cotest 10/05/2015 Influenza Immunization (#1) 2025 SARS-COV-2 Immunization ( - 2023- season) 2025 Respiratory Syncytial Virus (RSV) Immunization (Adult) (1 [...] [place] [id number] [facility] Care Teams Preschool Teacher Aide Relationship Specialty Start Date End Date Marlon Vo MD [address] [place] [address] PCP - General Family Medicine 05/25/19
== END 2025-05-20 08:30 | disposition home or self-care (01) ==
LOC: CHSIMG 08:32
PROVIDERS: PCP Internal Medicine; Visit Provider Otolaryngology
DX: J32.9 Chronic sinusitis, unspecified (principal)
CPT/HCPCS: 70486